=== PATIENT | male | born 1945 | race Caucasian/White ===

== ENCOUNTER → 2022-04-19 09:40 | Outpatient (BNVA) | payer OTHER, SELFPAY | PROVIDERS: PCP Family Medicine; Visit Provider Internal Medicine Cardiovascular Disease | DX: R06.00 Dyspnea, unspecified (principal); E78.5 Hyperlipidemia, unspecified; E03.9 Hypothyroidism, unspecified; C18.9 Malignant neoplasm of colon, unspecified; Z87.891 Personal history of nicotine dependence | CPT/HCPCS: 93005; 99204 ==

== ENCOUNTER 2024-03-28 09:05 | Outpatient (CLI) | payer OTHER, SELFPAY ==
--- NOTE | 2024-03-28 09:07 | US_ITS ---
WS: [id number] ULTRASOUND ABDOMEN LIMITED CLINICAL INFORMATION: LIVER DESITY SEEN ON IDCT INCIDENTALLY COMPARISON: None. FINDINGS: Liver Size: Normal. Craniocaudal length: 14.7 cm. Echogenicity: Normal. Surface nodularity: None. Mass (size and location): Complex hepatic cyst with a few internal septations measuring 1.0 x 0.7 cm Bile ducts Intrahepatic ducts: Normal. Common bile duct diameter: 0.4 cm. Gallbladder Cholelithiasis Gallstones: Present Gallbladder sludge: None. Gallbladder wall thickening: None. Pericholecystic fluid: None. Sonographic Khan sign: Absent. Pancreas Normal as visualized. Right kidney: Small RIGHT renal cyst Hydronephrosis: None. Size: 9.8 cm x 4.8 cm x 5.7 cm. Abdominal aorta and IVC Visualized portions are normal. Ascites: None. US/US abdomen limited [id number] IMPRESSION: 1. Mobile cholelithiasis. No gallbladder wall thickening or pericholecystic fl uid. Large gallstone measuring 1.4 cm normal common bile duct. 2. No hydronephrosis in the RIGHT kidney. 3. RIGHT renal cyst measuring 1.5 x 1.8 cm. 4. Complex hepatic cyst measuring 1.0 x 0.7 cm with a few internal septations.
== END 2024-03-28 09:06 | disposition home or self-care (01) ==
LOC: RAD 09:05
PROVIDERS: PCP Family Medicine; Visit Provider Family Medicine
DX: K80.20 Calculus of gallbladder without cholecystitis without obstruction (principal); N28.1 Cyst of kidney, acquired; R16.0 Hepatomegaly, not elsewhere classified
CPT/HCPCS: 76705

== ENCOUNTER 2024-04-23 07:46 | Outpatient (CLI) | payer OTHER, SELFPAY ==
--- NOTE | 2024-04-23 07:50 | CT_ITS ---
WS: [id number] CT ABDOMEN WITH AND WITHOUT CONTRAST HISTORY: LIVER COMPLEX CYST, history of colon cancer. Contiguous single phase 3 mm axial imaging performed to the abdomen. Triple phase imaging performed. Oral contrast has not been provided. Coronal and sagittal reformats are submitted. All CT scans at [facility] use at least one of these dose optimization techniques: automated exposure control; mA and/or kV adjustment per patient size (includes targeted exams where dose is matched to clinical i ndication); or iterative reconstruction. IV CONTRAST: Omnipaque 350; 100 mL IV. Oral contrast: No DLP: 1343.87 mGy.cm COMPARISON: Ultrasound 03/28/2024 Lower thorax: Emphysema. Heart is normal size. No hiatal hernia. Liver/biliary system: Normal size liver. There are multiple scattered low-attenuation masses within t he liver. The largest in the LEFT lobe measures 8 mm. This corresponds to the complex cyst on recent ultrasound. There is no enhancement of this lesion. The remaining hypodense masses are too small to c haracterize but have similar appearance. Favor these are probably additional small cysts. There few a reas of blush like enhancement on the arterial phase within the periphery RIGHT lobe of the liver whi ch fill-in on the delayed imaging. These are probably very small hemangiomas. Additional benign granu lomata. Normal portal vein. Gallbladder: Cholelithiasis without acute cholecystitis. Pancreas: Normal size pancreas and pancreatic duct. No adjacent inflammation. Spleen: Granulomata. Normal size. Adrenal glands: Normal. Right kidney: Normal size kidney. Cortical cyst measures 1.8 cm from the lateral mid kidney. No obstr uction. No solid mass. Left kidney: Complex cyst does not enhance in the mid medial kidney measuring 2.5 cm. There are a few additional scattered low-attenuation masses which do not enhance. Aorta: Mild atherosclerosis with no aneurysm. Lymphadenopathy: None. Free fluid: None. GI tract: Stomach is mildly distended. There is mild gastric wall thickening which does not enhance. This may be due to only partial distention. In the visualized colon to the upper abdomen there is mar ked fecal retention and constipation. No obstructive pattern. Abdominal wall: Fat containing umbilical hernia. Visualized osseous structures: Unremarkable. CT/CT abdomen wo/w con [id number] IMPRESSION: 1. Multiple hepatic cysts. The cyst described by ultrasound is complex on 03/18 does not enhance. No solid masses. 2. Cholelithiasis without acute cholecystitis. 3. Bilateral renal cysts. No solid mass.
--- NOTE | 2024-04-23 07:50 | CT_ITS ---
WS: [id number] CT PELVIS WITH IV CONTRAST. HISTORY: LIVER COMPLEX CYST /HX OF COLON CANCER TECHNIQUE: Contiguous imaging is performed of the pelvis without oral contrast. Coronal and sagittal reformats are reviewed. All CT scans at [facility] use at least one of these dose optimizatio n techniques: automated exposure control; mA and/or kV adjustment per patient size (includes targeted exams where dose is matched to clinical indication); or iterative reconstruction. DLP: 1343.87 mGy.cm COMPARISON: None available. Marked constipation within the visualized colon. No obstructive pattern. No ascites or adenopathy. Pate rgical anastomosis near the rectosigmoid junction is intact. No associated mass. Very mild wall thick ening is diffuse. No focal thickening or enhancement. Moderate atherosclerosis in the iliac arteries. There is mild enhancement of the prostate gland. CT/CT pelvis w con* [id number] IMPRESSION: 1. No ascites or adenopathy in the pelvis. 2. Rectosigmoid anastomosis is intact with no recurrent mass. 3. Diffuse constipation.
[2024-04-23 08:38] LABS: Blood Urea Nitrogen 10 mg/dL (8-23)
[2024-04-23] MEDS: iohexol 350 mg/mL 500 mL Btl (per mL) IV (08:39)
== END 2024-04-23 07:47 | disposition home or self-care (01) ==
LOC: RAD 07:46
PROVIDERS: PCP Family Medicine; Visit Provider Family Medicine
DX: Z98.0 Intestinal bypass and anastomosis status (principal); K59.00 Constipation, unspecified
CPT/HCPCS: 72193; 74170; 82565; 84520

== ENCOUNTER 2025-03-03 10:02 | Outpatient (CLI) | payer OTHER, SELFPAY ==
--- NOTE | 2025-03-03 10:11 | CT_ITS ---
WS: [id number] LDCT LUNG CANCER SCREENING TECHNIQUE: Noncontrast CT of the chest with coronal and sagittal reformatted images. CLINICAL INFORMATION: HX OF TOBACCO USE COMPARISON: None. DLP: 63.78 mGy.cm DIvol: Mean CTDIvol: 1.10 (mGy) All CT scans at [facility] use at least one of these dose optimization techniques: automated exposure control; mA and/or kV adjustment per patient size (includes targeted exams where dose is matched to clinical indication); or iterative reconstruction. FINDINGS: Moderate chronic emphysematous changes. Subsegmental atelectasis RIGHT greater than LEFT lung bases. A few calcified granulomas. No mediastinal or hilar lymphadenopathy. No axillary lymphadenopathy. Few tiny micronodules in the LEFT upper lobe. A few 3 mm nodules LEFT lower lobe. No suspicious pulmonary parenchymal abnormalities. Aortic calcification. Coronary calcification. Few small low-attenuation lesions in the LEFT hepatic lobe likely hepatic cyst. Small esophageal hernia. Adrenal glands are normal. Moderate thoracic kyphosis. CT/CT lung screening [id number] IMPRESSION: LUNG-RADS: 2-Benign Appearance or Behavior FOLLOW UP: 12 Month: Continue annual screening with LDCT
== END 2025-03-03 10:03 | disposition home or self-care (01) ==
LOC: RAD 10:03
PROVIDERS: PCP Family Medicine; Visit Provider Family Medicine
DX: Z87.891 Personal history of nicotine dependence (principal); J43.9 Emphysema, unspecified; R91.8 Other nonspecific abnormal finding of lung field
CPT/HCPCS: 71271